=== PATIENT | male | born 1990 | race African-American/Black ===

== ENCOUNTER 2023-04-14 13:54 | Outpatient (CLI) | payer BC, OTHER | END 2023-04-14 13:55 | disposition home or self-care (01) | LOC: SCSRAD 13:54 | PROVIDERS: ATTEND Physician Assistant Medical | DX: S89.92XA Unspecified injury of left lower leg, initial encounter (principal) ==

== ENCOUNTER 2023-10-29 15:15 | Outpatient (CLI) | payer OTHER | END 2023-10-29 15:16 | disposition home or self-care (01) | LOC: BICMRI 15:15 | PROVIDERS: ATTEND Nurse Practitioner Family | DX: S82.002D Unspecified fracture of left patella, subsequent encounter for closed fracture with routine healing (principal) ==